=== PATIENT | female | born 1985 | race Caucasian/White ===

== ENCOUNTER 2018-04-25 10:21 | Inpatient (IN) | payer OTHER ==
[~2018-04-25] VITALS: Ht 160 cm; Wt 72.6 kg
--- NOTE | 2018-04-25 11:35 | History & Physical ---
General Information and HPI MD Statement: I have seen and personally examined RAE LOPEZ and documented this H& P. The patient is a 33 year old female at [40] weeks and [4] days gestation who presented with a chief complaint of [painful regular contractions.]. Source of Information: patient, record Exam Limitations: no limitations History of Present Illness: 33yo at 40w4d was asked to come to L&D when she called the office earlier this morning c/o regular painful contractions and bloody discharge. In L&D she was found to have UCs q5min., FHRs 140s category 1. One episode of FHR deceleration for 2-3min, pt. given O2 and scalp electrode placed, and the heart rate recuperated quickly. AF clear. Allergies/Medications Allergies: Coded Allergies: nickel (Mild, RASH 04/25/18) Home Med list Vit #76/Iron,Carb/FA (Prenatabs Rx Tablet) 29 MG IRON-1 MG TABLET 1 TAB PO DAILY (Reported) Compliance With Home Meds: GOOD Past History sleeve sewer History : 2 Para: 0 Last Menstrual Period: 07-15-17 Estimated Delivery Date: 04-21-18 Past sleeve sewer History: none Past Pregnancies Past Pregnancies: Date of Delivery: n/a Medical History Blood Transfusion Hx: No Type of Reaction: none Neurological: NONE EENT: NONE Cardiovascular: NONE Respiratory: NONE Gastrointestinal: NONE Hepatic: NONE Renal: NONE Musculoskeletal: NONE Psychiatric: NONE Endocrine: NONE Blood Disorders: NONE Cancer(s): NONE COMMISSIONING ENGINEER/Reproductive: fibroid Other Medical Hx: lip cold sores, rarely Surgical History Pertinent Surgical History: breast implants, D&C for SAB Past Family/Social History Psychosocial History Where do you live? Home Who Do You Live With? spouse Primary Language: Hungarian Smoking Status: Never Smoked ETOH Use: denies use Illicit Drug Use: denies illicit drug use Living Will? 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 No Contractions: Q3-4 #1 - FHR Baseline: 140 Category: 1 Estimated Weight: 3500 Presentation: VTX Patient for Induction? No Physical Exam: Gravid woman in NAD HEENT - normal, lips pink and moist pharynx - no erythema or exudate Neck - supple Breasts - no mass Lungs - CtA bilat. Cor - RRR Abd/Fundus - soft, NT no CVAT Pelvic - 3cm/90%/VTX -2, clear AF Extr - min. edema bilat. Neuro - grossly intact Psych - appropriate Labs Blood Type & Rh: A+ Antibody Screen: neg Hct/Hgb & Platelets #1: 13.5/39.1%, 241K Hct/Hgb & Platelets #2: 12.6/37%, 223K Rubella: Immune VDRL #1: neg VDRL #2: neg HbsAg: neg HIV #1: neg HIV #2 neg 1 Hr P 3 Hr P/130/121/154 Group B Strep: neg Initial Ultrasound: 10w4d on 09/27/17 Anatomy Ultrasound: 20w with normal anatomy 12/05/17 Ultrasound for EFW: at 37w3d on 04/03/18, EFW 3254g (7lb3oz) Genetic Testinst TMS and Counsyl tests normal Last 24 Hrs of Labs/Pasha: Laboratory Tests 04/25/18 1120: CBC w Diff NO MAN DIFF REQ, RBC 4.52, MCV 90.7, MCH 31.7 H, MCHC 34.9, RDW 13.1 , MPV 9.1, Gran % 75.5 H, Lymphocytes % 16.0 L, Monocytes % 7.9, Eosinophils % 0.4, Basophils % 0.2, Absolute Granulocytes 8.2 H, Absolute Lymphocytes 1.7, Absolute Monocytes 0.9 H, Absolute Eosinophils 0, Absolute Basophils 0, Urine Color YEL, Urine Clarity HAZY H, Urine pH 6.5, Ur Specific [place] 1.010, Urine Protein NEG, Urine Ketones NEG, Urine Nitrite NEG, Urine Bilirubin NEG, Urine Urobilinogen 0.2, Ur Leukocyte Esterase TRACE H, Ur Microscopic SEDIMENT EXAMINED, Urine RBC RARE, Urine WBC RARE, Ur Epithelial Cells FEW, Urine Bacteria MANY H, Urine Hemoglobin TRACE-INTACT, Urine Glucose NEG 04/25/18 1046: Membrane Rupture NEGATIVE Assessment/Plan Assessment/Plan: active labor at term prolonged deceleration meconium-stained amniotic fluid As Ranked By This Provider Problem List: 1. 2. Active labor at term 3. Thin meconium stained amniotic fluid 4. heart deceleration Core Measures Venous Thromboembolism VTE Risk Factors / No Mechanical VTE Prophylaxis d/t Early Ambulation No VTE Pharm Prophylaxis d/t Surgical Contraindication (epidural, possible C/S) Attending MD Review Statement Attending Statement Attending MD Statement: examined this patient, reviewed EMR data (avail), discussed w/nursing
[2018-04-25 11:42] LABS: ABSOLUTE BASOPHIL COUNT 0 /CUMM (0.0-0.2); ABSOLUTE EOSINOPHIL COUNT 0 /CUMM (0.0-0.7); ABSOLUTE GRANULOCYTE CT 8.2 /CUMM (1.4-6.5); ABSOLUTE LYMPH COUNT 1.7 /CUMM (1.2-3.4); ABSOLUTE MONOCYTE COUNT 0.9 /CUMM (0.10-0.60); BASOPHIL % 0.2 % (0.0-2.0); EOSINOPHIL % 0.4 % (0-5); GRANULOCYTE % 75.5 % (42.2-75.2); MEAN CORPUSCULAR HGB 31.7 PG (27.0-31.0); MEAN CORPUSCULAR HGB CONC 34.9 G/DL (33.0-37.0); MEAN CORPUSCULAR VOLUME 90.7 FL (81.0-99.0); MEAN PLATELET VOLUME 9.1 FL (7.4-10.4); PLATELET COUNT 191 /CUMM (130-400); RBC DISTRIBUTION WIDTH 13.1 % (11.5-14.5); RED BLOOD CELL CT 4.52 /CUMM (4.20-5.40); WHITE BLOOD CELL COUNT 10.9 /CUMM (4.8-10.8)
[2018-04-25 12:07] VITALS: BP 141/79
[2018-04-25] MEDS ORDERED: PRENATABS RX T1 EACH PO (12:10)
--- NOTE | 2018-04-25 19:49 | PN- OBGYN ---
Surgical Brief Attending Note Brief Attending Note: Progress - Comfortable with epidural. Some vaginal "shootings" of pain. FHR BL 140, category 1, +accels, no decels UCs q5-7,mild Cervix 7cm, 90%, VTX -1, cervix swollen bottom half, draining scant, clear AF [place] draining clear yellow urine A: active labor UCs have spaced out part of cervix swollen thin mec with AROM P: con't continuous monitoring Pitocin per protocol for augmentation position changes in the bed Peds at delivery for meconium seen earlier
--- NOTE | 2018-04-26 06:16 | PN- OBGYN ---
Surgical Brief Attending Note Brief Attending Note: Progressed slowly to full dilation throughout the night, anterior swollen lip has resolved, UCs q3-4min, Pitocin has been off since a prolonged deceleration around MN. FHR BL 140, category 1 mostly, with +accels, 3 episodes of prolonged deceleration since admission, baby recovered with patient on her knees, with O2. Now patient is pushing with the nurses, she is tired, says she doesn't feel like pushing. vertex OP, 0 station, descends with strong push EFW 3500g. -continue stage 2
--- NOTE | 2018-04-26 09:40 | Labor & Delivery Summary ---
Delivery Summary Vaginal Delivery: Vaginal: spontaneous Episiotomy/Lacerations: Type: RML with 3rd degree laceration Repair: in layers with 2.0 Vicryl Anesthesia: epidural/local Lidocaine Placenta: Placenta: spontanteous, normal, 3 vessel Anesthesia: block, local Baby's Weight: 8lb 14oz Apgars - 1 Min: 8 Apgars - 5 Min: 9 Additional Comments: Primipara was delivered at term, spontaneously, of a single viable male infant, 8,9, weight [id number] from the asynclitic SIOMARA position over an RML episiotomy with 3rd-degree extension. AF stained with moderate meconium, nonparticulate, cord trivascular and long, large placenta delivered spontaneously and intact. Repair of sphincter and perineum with 2.0 Vicryl in layers. Labia, vaginal side -sherman, cervix, and rectal mucosa intact, confirmed with rectal exam before and after repair. Clots evacuated from vagina and STEPHEN, fundus firm, nontender, EBL 250cc, lochia mild rubra. Sharps and sponge counts correct. Patient instructed in perineal aftercare. They decline circumcision for their son "Andrew".
--- NOTE | 2018-04-27 10:06 | PN- Post Delivery/GYN ---
Subjective Subjective: c/o vaginal pain Review of Systems Constitutional: Denies: chills, fever. EENTM: Denies: blurred vision, double vision, visual changes. Cardiovascular: Denies: chest pain, edema. Respiratory: Denies: cough, hemoptysis. Gastrointestinal: Denies: diarrhea, nausea, vomiting. Genitourinary: Denies: frequency. Neurological/Psychological: Denies: anxiety, depressed. Objective Last 24 Hrs of Vital Signs/I&O vss Physical Exam General Appearance Alert, Oriented X3, Cooperative, No Acute Distress Cardiovascular Regular Rate Lungs Clear to Auscultation Pelvic (FEMALE) lochia serosanganous Current Medications: Current Medications Sig/Yobany Start time Last Medication Dose Route Stop Time Status Admin Acetaminophen 650 MG Q4P PRN 04/26 0930 AC PO Bupivacaine HCl 10 ML ONCE ONE 04/26 1015 DC 04/26 SC 04/26 1016 1035 Ibuprofen 800 MG Q6P PRN 04/26 0930 AC 04/27 PO 0730 Lactated Ringer's 1,000 ML Q8H 04/25 1130 AC 04/26 IV 0430 Magnesium Hydroxide 30 ML DAILY PRN 04/26 0930 AC PO Oxycodone/ 1 TAB Q3P PRN 04/26 0930 AC 04/27 Acetaminophen PO 0313 Oxytocin 20 UNITS Q5H 04/26 0930 DC 04/26 Lactated Ringer's 1,000 ML IV 04/26 1429 0835 Oxytocin 30 UNITS PER PROTOCL 04/25 2000 AC Lactated Ringer's 500 ML IV Senna 374 MG AT BEDTIME NEED.. 04/26 0930 AC PO Last 24 Hrs of Labs/Pasha: Laboratory Tests 04/27/18 0900: CBC w Diff Pending, WBC Pending, RBC Pending, Hgb Pending, Hct Pending, MCV Pending, MCH Pending, MCHC Pending, RDW Pending, Plt Count Pending, MPV Pending Assessment/Plan Assessment/Plan ppd #1 vss afebrile plan d/c home tomorrow Problem List: 1. Attending MD Review Statement Attending Statement Attending MD Statement: examined this patient, discussed with family, discussed with nursing
[2018-04-27 11:03] LABS: ABSOLUTE BASOPHIL COUNT 0 /CUMM (0.0-0.2); ABSOLUTE EOSINOPHIL COUNT 0.1 /CUMM (0.0-0.7); ABSOLUTE GRANULOCYTE CT 15.8 /CUMM (1.4-6.5); ABSOLUTE LYMPH COUNT 2.3 /CUMM (1.2-3.4); ABSOLUTE MONOCYTE COUNT 0.9 /CUMM (0.10-0.60); BASOPHIL % 0.2 % (0.0-2.0); EOSINOPHIL % 0.6 % (0-5); GRANULOCYTE % 82.5 % (42.2-75.2); MEAN CORPUSCULAR HGB 31.7 PG (27.0-31.0); MEAN CORPUSCULAR HGB CONC 33.9 G/DL (33.0-37.0); MEAN CORPUSCULAR VOLUME 93.6 FL (81.0-99.0); MEAN PLATELET VOLUME 9.2 FL (7.4-10.4); RBC DISTRIBUTION WIDTH 13.3 % (11.5-14.5)
[2018-04-27 11:32] LABS: HEMATOCRIT 27.3 % (37-47); RED BLOOD CELL CT 2.92 /CUMM (4.20-5.40); WHITE BLOOD CELL COUNT 19.2 /CUMM (4.8-10.8)
[2018-04-27 12:04] LABS: PLATELET COUNT 170 /CUMM (130-400)
[2018-04-28] MEDS ORDERED: IBUPROFEN800 M1 PO (10:53)
--- NOTE | 2018-04-28 10:59 | PN- Post Delivery/GYN ---
Subjective Subjective: feeling better still with generalized aches Review of Systems Constitutional: Denies: chills, fever. EENTM: Denies: blurred vision, double vision, visual changes. Cardiovascular: Reports: peripheral edema. Respiratory: Denies: cough, short of breath. Gastrointestinal: Denies: nausea, vomiting. Neurological/Psychological: Denies: anxiety, depressed. All Other Systems: Reviewed and Negative Objective Last 24 Hrs of Vital Signs/I&O vss Physical Exam General Appearance Alert, Oriented X3, Cooperative, No Acute Distress HEENT Atraumatic Neck Supple Cardiovascular Regular Rate Lungs Clear to Auscultation Abdomen Soft, No Tenderness, fundus firm Extremities 3+ pedal edema Pelvic (FEMALE) lochia serosanganous Current Medications: Current Medications Sig/Yobany Start time Last Medication Dose Route Stop Time Status Admin Acetaminophen 650 MG Q4P PRN 04/26 0930 AC PO Ibuprofen 800 MG .STK-MED ONE 04/27 1640 DC PO 04/27 1641 Ibuprofen 800 MG Q6P PRN 04/26 0930 AC 04/28 PO 0434 Lactated Ringer's 1,000 ML Q8H 04/25 1130 DC 04/26 IV 0430 Magnesium Hydroxide 30 ML DAILY PRN 04/26 0930 AC PO Oxycodone/ 1 TAB Q3P PRN 04/26 0930 AC 04/27 Acetaminophen PO 1959 Oxytocin 30 UNITS PER PROTOCL 04/25 2000 AC Lactated Ringer's 500 ML IV Senna 374 MG .STK-MED ONE 04/27 211 DC PO 04/27 211 Senna 374 MG AT BEDTIME NEED.. 04/26 0930 AC PO Assessment/Plan Assessment/Plan PPD #2 vss afebrile plan d/c home Problem List: 1. Attending MD Review Statement Attending Statement Attending MD Statement: examined this patient, discussed with family, discussed with nursing
== END 2018-04-28 11:10 | DRG 775 ==
LOC: CBCO 10:21 → GNO 11:20
PROVIDERS: Obstetrics & Gynecology
PROC: 10E0XZZ Delivery of Products of Conception, External Approach (ICD-10-PCS; principal; 2018-04-26)
PROC: 0KQM0ZZ Repair Perineum Muscle, Open Approach (ICD-10-PCS; principal; 2018-04-26)
DX: O70.20 Third degree perineal laceration during delivery, unspecified (principal); Z37.0 Single live birth; O77.0 Labor and delivery complicated by meconium in amniotic fluid; Z3A.40 40 weeks gestation of pregnancy; O76 Abnormality in fetal heart rate and rhythm complicating labor and delivery
CPT/HCPCS: GNOP; GNOS; 36415; 81001; 84112; 87086; J2210; J3490; J7120